=== PATIENT | male | born 1960 | race Caucasian/White ===

== ENCOUNTER 2025-08-18 15:14 | Emergency (ER) | payer OTHER ==
[~2025-08-18] VITALS: Ht 172.7 cm; Wt 77.1 kg
[2025-08-18 15:18] VITALS: BP 122/77
[2025-08-18 15:39] LABS: PLATELET COUNT (AUTO) 526 K/uL (152-348); RED BLOOD CELL COUNT(AUTO) 5.21 MIL/uL (4.06-5.63); RED CELL DISTRIBUTION WIDTH 15.5 % (12.1-16.2); WHITE BLOOD COUNT (AUTO) 13.7 K/uL (3.6-10.2)
[2025-08-18 15:48] LABS: CREATININE 1.1 mg/dL (0.6-1.3); SODIUM SERUM 138 mmol/L (136-145); UREA NITROGEN, BLOOD 25 mg/dL (7-18)
[2025-08-18 15:54] LABS: ASPARTATE AMINOTRANSFERASE 15 U/L (15-37); TOTAL PROTEIN, SERUM 7.4 g/dL (6.4-8.2)
[2025-08-18] MEDS ORDERED: CEFAZOLIN 2 G in IV DEXTROSE 5% 100 ML IV ONE (16:00)
[2025-08-18] MEDS ORDERED: AZITHROMYCIN 500MG/ D5W 250ML IVPB **ER PYXIS ONLY IV ONE (16:00)
[2025-08-18] MEDS: CEFTRIAXONE 500 MG VIAL IV ONE (16:01)
[2025-08-18] MEDS ORDERED: ASPI81TA31 PO (16:18)
[2025-08-18] MEDS ORDERED: [UNRECOGNIZED DRUG - OTHER] PO (16:18)
[2025-08-18] MEDS: IV NORMAL SALINE 500 ML BAG IV ONE (16:26)
[2025-08-18] MEDS: AZITHROMYCIN IV 500 MG in IV DEXTROSE 5% 250 ML IV ONE (16:27)
[2025-08-18] MEDS ORDERED: HYDROCODONE/APAP 10-325 MG TABLET ONE (16:35)
[2025-08-18] MEDS: HYDROCODONE/APAP 10-325 MG TABLET PO ONE (16:39)
[2025-08-18] MEDS ORDERED: AMOX-430 PO (16:51)
[2025-08-18] MEDS ORDERED: HYDR-3972 PO (16:51)
[2025-08-18] MEDS ORDERED: AZIT250T PO (16:51)
[2025-08-18] MEDS ORDERED: TAMS-3 PO (17:15)
[2025-08-18 17:39] VITALS: BP 114/70; O2SAT 98
== END 2025-08-18 17:39 | disposition home or self-care (01) ==
LOC: ER 15:17
DX: J18.9 Pneumonia, unspecified organism (principal); N40.0 Benign prostatic hyperplasia without lower urinary tract symptoms; Z79.82 Long term (current) use of aspirin; Z86.73 Personal history of transient ischemic attack (TIA), and cerebral infarction without residual deficits; Z87.891 Personal history of nicotine dependence; Z20.822 Contact with and (suspected) exposure to COVID-19
CPT/HCPCS: 99285; 96365; 71045; 96367; 87426; 80076; 80048; 83880; 85025; 84145; 85730; 86140; 87040; 84484; 36415; 93005; 83605; J0456; J0696; J7040; A4606; A4663; J0690